=== PATIENT | female | born 1990 | race Caucasian/White ===

== ENCOUNTER 2016-04-28 20:42 | Emergency (ER) | payer BC ==
--- NOTE | 2016-04-28 22:16 | UCPHY ---
H & P Patient Type: New HPI/ROS: CHIEF COMPLAINT: Blemish to cheek HISTORY OF PRESENT ILLNESS: The patient is a 26 year old female presenting with a red blemish to her right cheek that she woke up with this morning. She tried to pop it and had a small amount of drainage. The area increased in redness and size throughout the day. She tried warm compresses, but that seemed to make the area worse. She denies fever. No dental pain or gum pain. No facial numbness. Of note, the patient just started Metformin and a new control this week. REVIEW OF SYSTEMS: A ten point review of systems was performed and is negative with the exception of the items mentioned in the HPI. Source: Patient Exam Limitations: No limitations - Medical/Surgical History Other PMH: Hypothyroidism. - Family History Significant Family History: No pertinent family hx - Social History Smoking Status: Never smoked Alcohol Use: Occasionally Drug Use: Marijuana Additional Social History: Works in [employer] and [employer]. - Physical Exam Exam: General Appearance: Alert. Vital signs reviewed. Eyes: Pupils equal and round, no conjunctival injection, no discharge. Anicteric. Face: 1.5 inch by 1 inch warm, circular, erythematous area to right zygoma. No fluctuance. No active drainage. No rash. ENT, Mouth: Mucous membranes are moist, no oropharyngeal erythema or edema. No dental or gum tenderness. Dentition in good repair. Neck: No lymphadenopathy, supple. Respiratory: Lungs are clear to auscultation; no wheezes, rales, or rhonchi. Cardiovascular: Regular rate and rhythm; no murmur, rub, or gallop. Skin: Warm and dry, no rashes on exposed skin, normal color. Neurological: Alert and oriented. Moving all four extremities easily and equally. Psychiatric: Normal affect. Constitutional: Initial Vital Signs Temperature (C) 36.5 C 04/28/16 22:13 Heart Rate 82 04/28/16 22:13 Respiratory Rate 14 04/28/16 22:13 Blood Pressure 114/99 H 04/28/16 22:13 O2 Sat (%) 94 04/28/16 22:13 O2 Delivery Mode Room Air Allergies/Adverse Reactions: No Known Allergies Allergy (Unverified 04/28/16 22:09) Home Medications: Medication Instructions Recorded Cephalexin [Keflex] 500 mg PO TID #20 cap 04/28/16 Doxycycline Hyclate [Doxycycline] 100 mg PO BID #13 cap 04/28/16 Levothyroxine 04/28/16 Metformin HCl 04/28/16 Medical Decision Making ED Course/Re-evaluation: Facial cellulitis. No evidence of underlying abscess. No dental infection found. The patient was discharged home with 1 week of Keflex and Doxycycline. She was instructed to followup with her PCP reevaluation and to return if symptoms worsened. Differential Diagnosis: I considered a differential diagnosis that includes but is not limited to cellulitis, abscess, contact dermatitis, allergic reaction, and bite. - Data Points Medications Given: Discontinued Medications Cephalexin HCl (Keflex) 500 mg PO EDNOW ONE PRN Reason: Protocol Stop: 04/28/16 22:26 Last Admin: 04/28/16 22:50 Dose: 500 mg Doxycycline Hyclate (Doxycycline Hyclate) 100 mg PO EDNOW ONE PRN Reason: Protocol Stop: 04/28/16 22:26 Last Admin: 04/28/16 22:50 Dose: 100 mg Departure - Departure Disposition: Home, Routine, Self-Care Clinical Impression: Cellulitis Qualifiers: Site of cellulitis: face Qualified Code(s): L03.211 - Cellulitis of face Condition: Good Instructions: Cellulitis (ED) Additional Instructions: Take full course of antibiotics. Try cold compresses to the area. Followup with your primary care physician in 1 week for reevaluation. If you develop fever, increased redness, swelling, or drainage from the site, please return to the emergency department. Referrals: NIURKA MILTON [Primary Care Provider] - As per Instructions Prescriptions: Cephalexin [Keflex] 500 mg PO TID #20 cap Doxycycline Hyclate [Doxycycline] 100 mg PO BID #13 cap - PQRS PQRS Measurement: Does not apply. Report Scribed for: Kaley Hernandez Report Scribed by: Tricia Cueva Date of Report: 04/28/16 Time of Report: 22:27 Physician Review and Approval Statement: 04/28/16 22:16 Portions of this note were transcribed by the medical practice manager. I, Dr. Kaley Hernandez, personally performed the history, physical exam, and medical decision- making; and confirmed the accuracy of the information in the transcribed note.
[2016-04-28 22:19] VITALS: BP 114/99; PULSE 82; RESP 14; TEMP 97.7; O2SAT 94
[2016-04-28] MEDS ORDERED: CEPHALEXIN 500 MG CAP PO ONE (22:25)
[2016-04-28] MEDS ORDERED: DOXYCYCLINE HYCLATE 100 MG CAP/TAB PO ONE (22:25)
== END 2016-04-28 23:11 | disposition home or self-care (01) ==
LOC: CED 20:42
DX: L03.211 Cellulitis of face (principal)
CPT/HCPCS: G0463-PO